=== PATIENT | male | born 1995 | race Caucasian/White ===

== ENCOUNTER → 2019-02-10 09:09 | Outpatient (CLI) | payer OTHER, SELFPAY | PROVIDERS: PCP Emergency Medicine; Visit Provider Nurse Practitioner Family | DX: R55 Syncope and collapse (principal) | CPT/HCPCS: 93017 ==

== ENCOUNTER 2021-05-17 08:52 | Emergency (ER) | payer OTHER, SELFPAY ==
[2021-05-17 08:54] VITALS: BP 129/77; PULSE 76; RESP 18; TEMP 36.8; O2SAT 99
--- NOTE | 2021-05-17 09:01 | CT_ITS ---
PROCEDURE: CT ABDOMEN PELVIS W CON CLINICAL INDICATION: RLQ and Right flank pain COMPARISON: No exams were available for comparison TECHNIQUE: IV Contrast: 75ML Isovue 370 Oral Contrast None Axial images obtained with sagittal and coronal reformats. All CT scans at the facility use one or more dose reduction, viz: automated exposure control, ma/kV adjustment per patient size (including targeted exams where dose is matched to indication, i.e. head), or iterative reconstruction technique. FINDINGS: LOWER THORAX: No acute finding ABDOMEN & PELVIS: The liver, spleen, adrenal glands, and pancreas has an unremarkable appearance. No renal or ureteral calculi. No hydronephrosis. No evidence of appendicitis. No intestinal obstruction or free. Multiple unopacified bowel loops in the abdomen or pelvis which could obscure or mimic pathology. If symptoms persist, consider repeat exam with IV and oral contrast.. There is a mild amount of feces within the colon in the rectosigmoid region. No acute bony findings. IMPRESSION: No acute finding Dictated by: Shemar Haney MD 05/17/2021 10:28 hSemar Haney MD in [place] 05/17/2021 10:28
--- NOTE | 2021-05-17 09:01 | HMH.EDABDPAI ---
ED Disposition Clinical Impression: Gastroenteritis Disposition: Home, Self-Care Condition on Discharge: Fair Instructions: DI for Acute Abdominal Pain, DI for Viral Gastroenteritis -- Adult Additional Instructions: Stick to a clear liquid diet for the next day or 2. Slowly advance your diet as tolerated. Take [id number] Tylenol and or Motrin for your pain. Take the nausea medicine I prescribed for you as needed for nausea and vomiting. Follow-up with your primary care physician in about 3 days if you do not feel any improvement. Return to the emergency department if you feel worse in any way. Prescriptions: Ondansetron [Ondansetron Odt 8mg Tab] 8 mg PO QID 4 Days #16 tab Transmission Status: Pending to [id number] Referrals: Jose Luis Jimenez DO [Primary Care Provider] - 3 days - Critical Care Critical Care Time: No Attestation: On , the high probability of a clinically significant, sudden or life threatening deterioration of the following system(s) required my full and direct attention, intervention and personal management. The time I documented below is in addition to time spent performing reported procedures but includes the following listed in this critical care notation. Medical Decision Making - Medical Records Medical records reviewed: Yes: I reviewed the patient's medical records. - Daljit Inquiry Pt receiving controlled substance: No Vital Signs: 05/17/21 08:54 Temperature 98.2 F Temperature Source Oral Pulse Rate [Right Radial] 76 Respiratory Rate 18 Blood Pressure [Right Arm] 129/77 Blood Pressure Mean [Right Arm] 94 Blood Pressure Source [Right Arm] Automatic Cuff Blood Pressure Position [Right Arm] Sitting 02 Sat by Pulse Oximetry 99 Oxygen Delivery Method Room Air - Lab Data Lab results reviewed: Yes: I reviewed the patient's lab results. Lab Results 05/17/21 09:15: WBC 4.8, RBC 5.65, Hgb 17.3, Hct 51.7, MCV 91.5, MCH 30.6, MCHC 33.5, RDW 12.6, Plt Count 191, MPV 7.5, Neut % (Auto) 55.1, Lymph % (Auto) 35.7, [place] % (Auto) 4.8, Eos % (Auto) 3.7, Baso % (Auto) 0.7, Neut # (Auto) 2.7, Lymph # (Auto) 1.7, [place] # (Auto) 0.2, Eos # (Auto) 0.2, Baso # (Auto) 0.0 05/17/21 09:15: Sodium 141, Potassium 3.7, Chloride 103, Carbon Dioxide 28, Anion Gap 13.7, BUN 7 L, Creatinine 0.90, Estimated Creat Clear 115, Estimated GFR 105, Est GFR ( Amer) 127, Glucose 99, Calcium 9.6, Total Bilirubin 0.6, AST 29, ALT 13, Alkaline Phosphatase 70, Total Protein 7.5, Albumin 4.8, Globulin 2.7, Albumin/Globulin Ratio 1.8, Lipase 48 05/17/21 09:30: Urine Color Yellow, Urine Appearance Clear, Urine pH 6.0, Ur Specific [place] 1.010, Urine Protein Negative, Urine Glucose (UA) Negative, Urine Ketones Negative, Urine Blood Negative, Urine Nitrate Negative, Urine Bilirubin Negative, Urine Urobilinogen 0.2, Ur Leukocyte Esterase Negative, Urine RBC None, Urine WBC 3-5, Ur Squamous Epith Cells Occasional, Urine Bacteria None Result diagrams: 05/17/21 09:15 05/17/21 09:15 Orders (Tests/Meds): ED MEDICATIONS Discontinued Medications Generic Name Dose Route Start Last Admin Trade Name Ze PRN Reason Stop Dose Admin Iopamidol 75 ml 05/17/21 09:51 05/17/21 09:52 Iopamidol-370 (76%);100ml Bottle IV 05/17/21 09:52 75 ml ONCE ONE Administration Ondansetron HCl 4 mg 05/17/21 09:18 05/17/21 09:37 Ondansetron 4mg/2ml Vial IV 05/17/21 09:19 4 mg ONCE ONE Administration Sodium Chloride 10 ml 05/17/21 09:51 05/17/21 09:52 Sodium Chloride 0.9% 10ml Syr (Rad Only) IV 05/17/21 09:52 10 ml ONCE ONE Administration - CT Data CT Scan: Abdomen, Pelvis Time Received: 10:[address] Reviewed: Yes: I have reviewed the patient's CT results, I have viewed the radiologist's interpretation Preliminary Findings: Normal/NAD Medical Decision Narrative: The patient's work-up in the emergency department did not reveal any life-threatening or dangerous causes for the patient
[2021-05-17 09:36] LABS: Basophils % 0.7 % (0.1-2.0); Eosinophils # 0.2 K/mm3 (0.0-0.4); Eosinophils % 3.7 % (0.1-12.0); Hematocrit 51.7 % (42.0-52.0); Hemoglobin 17.3 g/dL (14.1-18.0); Lymphocytes # 1.7 K/mm3 (0.7-4.5); Lymphocytes % 35.7 % (10-50); Mean Corpuscular HGB Conc 33.5 g/dL (31.8-35.4); Mean Corpuscular Hemoglobin 30.6 pg (27.0-31.2); Mean Corpuscular Volume 91.5 fl (80-94); Mean Platelet Volume 7.5 fl (7.4-10.4); Monocytes # 0.2 K/mm3 (0.1-1.0); Monocytes % 4.8 % (1.7-9.3); Neutrophils # 2.7 K/mm3 (1.8-7.8); Neutrophils % 55.1 % (37.0-80.0); Platelet Count 191 K/mm3 (142-424); Red Blood Count 5.65 M/mm3 (4.60-6.20); Red Cell Distribution Width 12.6 % (11.5-17.5); White Blood Count 4.8 K/mm3 (4.8-10.8)
[2021-05-17 09:41] LABS: Microscopic, Urine URINE MICROSCOPIC (MICROSCOPIC)
[2021-05-17 09:43] LABS: Appearance,Urine CLEAR (Clear); Bilirubin,Urine Negative (Negative); Blood, Urine Negative (Negative); Color,Urine YELLOW (Yellow); Glucose,Urine (UA) Negative (Negative); Ketones,Urine Negative (Negative); Leukocyte Esterase,Urine Negative (Negative); Nitrate,Urine Negative (Negative); Protein,Urine Negative (Negative); Urobilinogen,Urine 0.2 EU/dl (0.2)
[2021-05-17 09:50] LABS: Chloride 103 mmol/L (98-107); Potassium 3.7 mmoL/L (3.5-5.1); Sodium 141 mmol/L (136-145)
[2021-05-17 09:52] LABS: Blood Urea Nitrogen 7 mg/dl (9-20); Creatinine Clearance Estimated 115 mL/min (50-200); Estimated Glomerular Filt Rate 105 ml/min (>60); GFR (African American) 127 ML/MIN (>60)
[2021-05-17 09:53] LABS: Alanine Aminotransferase 13 U/L (12-78); Albumin Level 4.8 g/dl (3.5-5.0); Albumin/Globulin Ratio 1.8 (1.1-1.8); Alkaline Phosphatase 70 U/L (38-126); Anion Gap 13.7 mEq/L (5-15); Aspartate Amino Transferase 29 U/L (17-59); Bilirubin,Total 0.6 mg/dl (0.2-1.3); Calcium 9.6 mg/dl (8.4-10.2); Carbon Dioxide 28 mmol/L (22.0-30.0); Globulin 2.7 g/dL (1.3-3.2); Glucose 99 mg/dl (74-100); Lipase 48 U/L (23-300); Total Protein,Serum 7.5 g/dl (6.3-8.2)
[2021-05-17 10:05] LABS: Squamous Epithelial Cell,Urine Occasional #/hpf (0-5)
[2021-05-17 10:52] VITALS: BP 125/82; PULSE 97; RESP 18; TEMP 36.8; O2SAT 98
== END 2021-05-17 10:53 | disposition home or self-care (01) ==
PROVIDERS: Emergency Provider Emergency Medicine; PCP Internal Medicine Clinical Cardiac Electrophysiology
DX: R10.31 Right lower quadrant pain (principal); R11.10 Vomiting, unspecified
CPT/HCPCS: 74177; 80053; 81001; 83690; 85025; 96374; 99283; J2405; Q9967

== ENCOUNTER 2021-11-04 10:54 | Emergency (ER) | payer OTHER, SELFPAY ==
[2021-11-04 10:55] VITALS: BP 137/85; PULSE 104; RESP 16; TEMP 37; O2SAT 98; BMI 20.3
--- NOTE | 2021-11-04 11:03 | PC.NURSE ---
ER at bedside
--- NOTE | 2021-11-04 11:16 | HMH.EDGENADL ---
ED Disposition Clinical Impression: Cellulitis of right lower leg Disposition: Home, Self-Care Condition on Discharge: Good Instructions: Cellulitis Prescriptions: Sulfamethoxazole/Trimethoprim [Bactrim DS tablet] 1 each PO BID #20 tab Transmission Status: [facility] to [facility] cephALEXin [Cephalexin 500mg Tab] 500 mg PO Q6H #40 tab Transmission Status: P[facility] to [facility] Referrals: Yobani Carrillo MD [Primary Care Provider] - - Critical Care Critical Care Time: No Attestation: On 11/04/21, the high probability of a clinically significant, sudden or life threatening deterioration of the following system(s) required my full and direct attention, intervention and personal management. The time I documented below is in addition to time spent performing reported procedures but includes the following listed in this critical care notation. Medical Decision Making - Medical Records Medical records reviewed: Yes: I reviewed the patient's medical records. - Daljit Inquiry Pt receiving controlled substance: No Vital Signs: 11/04/21 10:55 Temperature 98.6 F Temperature Source Oral Pulse Rate [Radial] 104 H Respiratory Rate 16 Blood Pressure [Right Arm] 137/85 Blood Pressure Mean [Right Arm] 102 Blood Pressure Position [Right Arm] Sitting 02 Sat by Pulse Oximetry 98 Oxygen Delivery Method Room Air Orders (Tests/Meds): ED MEDICATIONS Discontinued Medications Generic Name Dose Route Start Last Admin Trade Name Freq PRN Reason Stop Dose Admin Ceftriaxone Sodium 500 mg 11/04/21 11:08 Ceftriaxone 500mg Vial IM 11/04/21 11:09 ONCE ONE Lidocaine HCl 0 ml 11/04/21 11:08 Lidocaine 1% 5ml Pf Vial IM 11/04/21 11:09 ONCE ONE - Reevaluation(s) Time: 11:20 Reevaluation #1: On reevaluation, patient is feeling better. Tolerated initial antibiotic therapy. Patient is on dual antibiotic therapy. Needs a follow-up with PCP in 72 hours for repeat wound examination. Given strict return precautions. Verbalized understanding. Medical Decision Narrative: Is a 26-year-old male presenting to the emergency department with some swelling in his right leg. Findings are most consistent with cellulitis. The patient did have inoculation where he had a recent tattoo performed. Patient was given additional dose of antibiotics in the emergency department. Patient nontoxic. No evidence of sepsis. General Adult HPI - General Chief complaint: Wound/Laceration Stated complaint: right leg infection, swollen, and red Time Seen by Provider: 11/04/21 11:00 Mode of Arrival: Ambulatory Limitations: No Limitations Description of Symptoms (Recalled from ER Triage Doc. by RN): TO ED PER PVT CAR WITH C/O INFECTION RT LOWER LEG STARTING YESTERDAY. PT STATES RECENT TATTOO 1 WEEK AGO AND YESTERDAY AREA STARTED WITH REDNESS AND DRAINAGE AT SITE. DENIES ANY FEVER, CHILLS, NAUSEA, VOMITING - History of Present Illness HPI narrative: Is a 26-year-old male presented to the emergency department with some redness on his right lower leg. The patient states that he got a tattoo in the area about a week ago. Patient dates that since then he started having a little bit of redness in the area. Over the last 2 days he started having some discharge. Described as purulent in nature. States it is mildly tender. He has not been putting anything else on the lesion. Denies any associate fevers or chills. No headache or change in vision. No focal weakness. No chest pain or shortness of breath. Abdominal pain or vomiting. Diarrhea. - Related Data Previous Rx's Medication Instructions Recorded Amoxicillin/Potassium Clav 1 tab PO Q12H 10 Days #20 tab 03/13/19 [Augmentin 875-125 Tablet] Ibuprofen [Ibuprofen 600mg 600 mg PO Q6HP PRN #30 tab 03/13/19 Tablet] Mupirocin [Bactroban 2% Ointment 1 applicatio TP TID 7 Days #1 tube 03/13/19 22gm tube] Silver
[2021-11-04 11:33] VITALS: BP 126/74; PULSE 78; RESP 16; TEMP 36.6; O2SAT 96
--- NOTE | 2021-11-04 13:16 | PC.NURSE ---
pts prescriptions called into clinic pharmacy per pt request, spoke with Gael-pharmacist
== END 2021-11-04 11:35 | disposition home or self-care (01) ==
PROVIDERS: Emergency Provider Emergency Medicine; PCP Emergency Medicine
DX: L03.115 Cellulitis of right lower limb (principal); F17.210 Nicotine dependence, cigarettes, uncomplicated; L81.8 Other specified disorders of pigmentation
CPT/HCPCS: 96372; 99281; 99282; J0696

== ENCOUNTER 2022-04-11 14:25 | Emergency (ER) | payer OTHER, SELFPAY ==
[2022-04-11 14:50] VITALS: BP 113/73; PULSE 70; RESP 18; TEMP 36.7; O2SAT 98; BMI 18.1
--- NOTE | 2022-04-11 15:12 | HMH.EDUTC ---
[facility] [place] Disposition Clinical Impression: Nausea & vomiting Qualifiers: Vomiting type: unspecified Qualified Code(s): R11.2 - Nausea with vomiting, unspecified Disposition: Home, Self-Care Condition on Discharge: Good Instructions: Nausea and Vomiting-Adult, Ondansetron Additional Instructions: Drink extra fluids with and between meals. If you have difficulty drinking, try very small amounts of water or suck on ice chips. ? Avoid fruit juices, as these do not replace minerals and can actually increase diarrhea. ? Children and adults can use sports drinks to replenish electrolytes. Younger children and infants should use products formulated for children, like oral rehydration solutions. ? Eat food in small amounts and let your stomach recover. ? Get lots of rest. You may feel tired or weak. ? No greasy or fried foods for the next 24-48 hours BRAT diet Bananas Rice Apples and [place] ? Make sure to drink plenty of liquids ? Return if needed ? Straight to ER if any life threatening symptoms ? Zofran as prescribed If you start having any abdominal pain go straight to the ED ? Follow up with family doctor in the next 48-72 hours if no improvement or any worsening of symptoms Prescriptions: Ondansetron [Zofran 4mg ODT] 4 mg PO TIDP PRN #20 tab PRN Reason: Nausea Transmission Status: Pending to [facility] Referrals: Yobani Carrillo MD [Primary Care Provider] - As needed Time of Disposition: 15:43 Medical Decision Making - Daljit Inquiry Pt receiving controlled substance: No Daljit was queried for this patient: No Vital Signs: 04/11/22 14:50 04/11/22 15:38 Temperature 98.0 F 98.0 F Temperature Source Oral Pulse Rate 70 Pulse Rate [Right Brachial] 70 Respiratory Rate 18 18 Blood Pressure 113/73 Blood Pressure [Right Arm] 113/73 Blood Pressure Mean [Right Arm] 86 Blood Pressure Source [Right Arm] Automatic Cuff Blood Pressure Position [Right Arm] Sitting 02 Sat by Pulse Oximetry 98 Oxygen Delivery Method Room Air Orders (Tests/Meds): ED MEDICATIONS Discontinued Medications Generic Name Dose Route Start Last Admin Trade Name Freq PRN Reason Stop Dose Admin Ondansetron HCl 4 mg 04/11/22 15:13 04/11/22 15:17 Ondansetron 4mg Odt SL 04/11/22 15:14 4 mg ONCE ONE Administration Medical Decision Narrative: Patient states that he is feeling much better after zofran and sitting up in room drinking water no vomiting since arrival Discussed again with patient to see if he was having pain for transfer to the ED and patient still denies pain [facility] [place] HPI - General Stated complaint: Vomiting Time Seen by Provider: 04/11/22 14:55 Mode of Arrival: Ambulatory Source of Information: Patient Limitations: No Limitations Description of Symptoms (Recalled from Triage Doc. by RN): PATIENT C/O VOMITING, DECREASED ENERGY, AND PAIN IN LEFT LOWER ABDOMEN SINCE YESTERDAY HEENT Symptoms (Recalled from RN notes): No Resp Symptoms (Recalled from RN notes): No Skin Symptoms (Recalled from RN notes): No MS Symptoms (Recalled from RN notes): No Functional Status (Recalled from RN notes): WNL - History of Present Illness Provider Complaint: Patient states that he started yesterday with crampy like feeling in his left lower abdomen and started having N/V States that he has continued to have N/V since State that he has vomited several times today and still having nausea so he came in - Related Data Previous Rx's Medication Instructions Recorded Amoxicillin/Potassium Clav 1 tab PO Q12H 10 Days #20 tab 03/13/19 [Augmentin 875-125 Tablet] Ibuprofen [Ibuprofen 600mg 600 mg PO Q6HP PRN #30 tab 03/13/19 Tablet] Mupirocin [Bactroban 2% Ointment 1 applicatio TP TID 7 Days #1 tube 03/13/19 22gm tube] Silver Sulfadiazine [Silvadene 1 applicatio TP BID 10 Days #50 g 03/13/19 Cream 50gm] pyrethrins 0.33 %-piperonyl 1 applic TOPICAL ONCE #237 ml 08/11/19 butoxide 4 % shampoo Ondansetron
[2022-04-11 15:38] VITALS: BP 113/73; PULSE 70; RESP 18; TEMP 36.7; O2SAT 98
== END 2022-04-11 15:47 | disposition home or self-care (01) ==
PROVIDERS: Emergency Provider Nurse Practitioner; PCP Emergency Medicine
DX: R11.2 Nausea with vomiting, unspecified (principal)
CPT/HCPCS: 99212; G0463

== ENCOUNTER 2022-04-25 15:43 | Emergency (ER) | payer OTHER, SELFPAY ==
[2022-04-25 17:10] VITALS: BP 120/73; PULSE 62; RESP 20; TEMP 37.2; O2SAT 99; BMI 19.1
[2022-04-25 17:13] LABS: UTC Influenza A Antigen Negative (Negative)
[2022-04-25 17:14] LABS: UTC Influenza B Antigen Negative (Negative)
--- NOTE | 2022-04-25 17:33 | HMH.EDUTC ---
[facility] [place]ression: Nausea vomiting and diarrhea Disposition: Home, Self-Care Condition on Discharge: Good Instructions: Nausea and Vomiting-Adult, Diarrhea Additional Instructions: Drink extra fluids with and between meals. If you have difficulty drinking, try very small amounts of water or suck on ice chips. ? Avoid fruit juices, as these do not replace minerals and can actually increase diarrhea. ? Children and adults can use sports drinks to replenish electrolytes. Younger children and infants should use products formulated for children, like oral rehydration solutions. ? Eat food in small amounts and let your stomach recover. ? Get lots of rest. You may feel tired or weak. ? No greasy or fried foods for the next 24-48 hours BRAT diet Bananas Rice Apples and [place] ? Make sure to drink plenty of liquids ? Return if needed ? Straight to ER if any life threatening symptoms ? Zofran as prescribed ? You was given an outpatient order for diarrhea panel, please collect specimen and bring back to outpatient lab then call back to the [facility] or follow up with family doctor for results ? Follow up with family doctor in the next 48-72 hours if no improvement or any worsening of symptoms You were tested for today for COVID19 your test result should be back in the next 24-48 hours, you may check your results on the [facility] My Health Portal Make sure to take your Vitamins Vit. C Vit D and Zinc if you can take them Referrals: Yobani Carrillo MD [Primary Care Provider] - As needed Forms: Work/School Release Medical Decision Making - Daljit Inquiry Pt receiving controlled substance: No Daljit was queried for this patient: No Vital Signs: 04/25/22 17:10 Temperature 99.0 F Temperature Source Oral Pulse Rate [Left Brachial] 62 Respiratory Rate 20 Blood Pressure [Left Arm] 120/73 Blood Pressure Mean [Left Arm] 88 Blood Pressure Source [Left Arm] Automatic Cuff Blood Pressure Position [Left Arm] Sitting 02 Sat by Pulse Oximetry 99 Oxygen Delivery Method Room Air - Lab Data Lab results reviewed: Yes: I reviewed the patient's lab results. Lab Results 04/25/22 17:04: Influenza Type A Ag Negative, Influenza Type B Ag Negative Medical Decision Narrative: Patient state that he has zofran at [place] [facility] [place] - General Stated complaint: vomitting, Diarrhea Time Seen by Provider: 04/25/22 17:33 Mode of Arrival: Ambulatory Source of Information: Patient Limitations: No Limitations Description of Symptoms (Recalled from Triage Doc. by RN): PATIENT C/O VOMITING, DIARRHEA, AND DECREASED ENERGY SINCE SUNDAY HEENT Symptoms (Recalled from RN notes): No Resp Symptoms (Recalled from RN notes): No Skin Symptoms (Recalled from RN notes): No MS Symptoms (Recalled from RN notes): No Functional Status (Recalled from RN notes): WNL - History of Present Illness Provider Complaint: Patient states that he has had decreased energy and diarrhea and vomiting on and off since Sunday States that he has been drinking lots of fluids to keep his self hydrated but today he was feeling achy so he came in - Related Data Allergies Allergy/AdvReac Type Severity Reaction Status Date / Time No Known Allergies Allergy Verified 03/02/19 02:14 - Worker's Comp Is this a Worker's Comp case?: No [facility] History - Hepatitis A Screen Attestation statement:: This patient has been screened for Hepatitis A risk factors. I have reviewed the patient's past medical history: Yes Medical History: Denies:: Cancer, Diabetes Mellitus Type 1, Diabetes Mellitus Type 2, MRSA, Seizures, Transient Ischemic Attacks (TIA) Other Medical History: Reports: Other Laterality Cases: Bilateral: Tonsillectomy Other Surgeries: Yes: Other Amputation: No Fractures: Yes - Social History Smoking Status: Current every day smoker Tobacco Type: cigarettes # Packs/Day (cigarettes): 1 #Yrs smoked (if former smoker): 6 Alcohol Intake: never Alcohol Intake Frequ
[2022-04-25 17:52] VITALS: BP 120/73; PULSE 62; RESP 20; TEMP 37.2; O2SAT 99
== END 2022-04-25 18:04 | disposition home or self-care (01) ==
PROVIDERS: Emergency Provider Nurse Practitioner; PCP Emergency Medicine
DX: R11.2 Nausea with vomiting, unspecified (principal); R19.7 Diarrhea, unspecified
CPT/HCPCS: 87804; 99212; G0463

== ENCOUNTER 2022-11-15 11:12 | Emergency (ER) | payer OTHER, SELFPAY ==
[2022-11-15 11:20] VITALS: BP 131/73; PULSE 68; RESP 16; TEMP 36.4; O2SAT 100; BMI 20.3
--- NOTE | 2022-11-15 11:29 | HMH.EDABDPAI ---
Discharge Plan Disposition Patient Disposition: Home, Self-Care Condition: Good Prescriptions Prescriptions: New ondansetron 4 mg tablet,disintegrating 4 mg PO Q8H PRN (Reason: nausea and vomiting) 4 Days Qty: 10 0RF Referrals Follow up/Referrals: Yobani Carrillo MD [Primary Care Provider] - See instructions Activity Restrictions/Add. Instructions Additional Instructions/Restrictions: Drink plenty of fluids to include an oral rehydration solution such as Pedialyte. Avoid fried greasy spicy foods. Advance diet to bland foods as tolerated. Return for worsening abdominal pain or other concerns. Clinical Impressions Clinical Impression: Gastroenteritis Stand Alone Forms Stand Alone Forms: Work/School Release Instructions Patient Instructions: DI for Acute Abdominal Pain Discharge ED Provider: Atul Handy Abdominal Pain HPI General Chief Complaint: Abdominal Pain Stated Complaint: stomach pain, diarrhea, vomiting Time Seen by Provider: 11/15/22 11:19 Mode of Arrival: Ambulatory Source of Information: Patient Limitations: No Limitations Description of Symptoms (Recalled from ER Triage Doc. by RN): Pt c/o N/V/D sick for about four days and the pain started this morning indicating generalized abdominal pain, denies sick contacts, no previus abd sx; NAD History of Present Illness HPI narrative: Patient presents with a 4-day history of nausea vomiting diarrhea and abdominal discomfort. He describes symptoms as moderate. He states he had a valdez eater this morning from [employer] and vomited that back up and has not tolerated fluids today and has had 2 episodes of vomiting today. Denies recent antibiotic use he denies fever. He denies exacerbating alleviating factors. Related Data Previous Rx's Medication Instructions Recorded ondansetron 4 mg disintegrating 4 mg PO Q8H PRN nausea and 11/15/22 tablet vomiting 4 days #10 tabs Allergies Allergy/AdvReac Type Severity Reaction Status Date / Time No Known Allergies Allergy Verified 03/02/19 02:14 [facility] Disclaimer: The information contained in this section may have been updated after the patient was seen, as this information can be updated by other users. Social History Smoking Status: Current every day smoker tobacco type: cigarettes packs per day: 1 second hand exposure: Yes alcohol intake: never substance use type: marijuana current occupational status: other Travel in the last 8 weeks: None household members: family housing: house ROS Obtained: Yes All systems reviewed & no additional complaints except as documented Physical Exam General General appearance: alert and in no apparent distress Head Head exam: atraumatic, normocephalic and normal inspection Eye Eye exam: Present normal appearance, PERRL and EOMI ENT ENT exam: Present normal exam, normal oropharynx, mucous membranes moist, TM's normal bilaterally and normal external ear exam Neck Neck exam: Present normal inspection, full ROM and trachea midline; Absent meningismus or lymphadenopathy Chest Chest inspection: Present normal inspection and symmetric chest wall rise; Absent tenderness Respiratory Respiratory exam: Present normal lung sounds bilaterally; Absent respiratory distress Cardiovascular Cardiovascular exam: Present regular rate and normal rhythm; Absent JVD Abdominal Exam Abdominal tenderness: Present suprapubic (mild) Extremities Exam Extremities exam: Present normal inspection, full ROM and normal capillary refill; Absent calf tenderness Back Exam Back exam: Present normal inspection; Absent tenderness Neurological Exam Neurological exam: Present alert and oriented X3 Psychiatric Psychiatric exam: Present normal affect and normal mood Skin Skin exam: Present warm, dry, intact and normal color Lymphatic Lymphatic Findings: no adenopathy Medical Decision Making Daljit Inquiry Pt receiving co
[2022-11-15 11:30] VITALS: BP 111/69; PULSE 71; O2SAT 99
[2022-11-15 11:30] LABS: Microscopic, Urine URINE MICROSCOPIC (MICROSCOPIC)
[2022-11-15 11:32] LABS: Appearance,Urine CLEAR (Clear); Bilirubin,Urine Negative (Negative); Blood, Urine Negative (Negative); Color,Urine YELLOW (Yellow); Glucose,Urine (UA) Negative (Negative); Ketones,Urine Negative (Negative); Leukocyte Esterase,Urine Negative (Negative); Nitrate,Urine Negative (Negative); Protein,Urine Negative (Negative); Specific Gravity, Urine <= 1.005 (1.005-1.030); Urobilinogen,Urine 0.2 EU/dl (0.2)
[2022-11-15 11:44] LABS: Bacteria,Urine Trace /lpf; Squamous Epithelial Cell,Urine Occasional #/hpf (0-5)
[2022-11-15 11:45] LABS: Basophils % 0.7 % (0.1-2.0); Eosinophils # 0.1 K/mm3 (0.0-0.4); Eosinophils % 1.5 % (0.1-12.0); Hematocrit 46.9 % (42.0-52.0); Hemoglobin 16.1 g/dL (14.1-18.0); Lymphocytes # 2.2 K/mm3 (0.7-4.5); Lymphocytes % 36.3 % (10-50); Mean Corpuscular HGB Conc 34.2 g/dL (31.8-35.4); Mean Corpuscular Hemoglobin 30.5 pg (27.0-31.2); Mean Corpuscular Volume 89.1 fl (80-94); Mean Platelet Volume 7.8 fl (7.4-10.4); Monocytes # 0.3 K/mm3 (0.1-1.0); Monocytes % 4.3 % (1.7-9.3); Neutrophils # 3.5 K/mm3 (1.8-7.8); Neutrophils % 57.2 % (37.0-80.0); Platelet Count 183 K/mm3 (142-424); Red Blood Count 5.27 M/mm3 (4.60-6.20); White Blood Count 6.2 K/mm3 (4.8-10.8)
[2022-11-15 11:55] LABS: Chloride 102 mmol/L (98-107); Potassium 3.6 mmoL/L (3.5-5.1); Sodium 138 mmol/L (136-145)
[2022-11-15 11:57] LABS: Blood Urea Nitrogen 12 mg/dl (9-20); Creatinine Clearance Estimated 121 mL/min (50-200); Estimated Glomerular Filt Rate 103 ml/min (>60); GFR (African American) 124 ML/MIN (>60)
[2022-11-15 11:58] LABS: Alanine Aminotransferase 18 U/L (12-78); Albumin/Globulin Ratio 2.2 (1.1-1.8); Alkaline Phosphatase 61 U/L (38-126); Anion Gap 12.6 mEq/L (5-15); Aspartate Amino Transferase 31 U/L (17-59); Bilirubin,Total 0.4 mg/dl (0.2-1.3); Carbon Dioxide 27 mmol/L (22.0-30.0); Globulin 2.3 g/dL (1.3-3.2); Glucose 97 mg/dl (74-100); Lipase 85 U/L (23-300); Total Protein,Serum 7.3 g/dl (6.3-8.2)
--- NOTE | 2022-11-15 12:24 | PC.NURSE ---
rounded on pts room to see if they had any needs. pt stated that they had no needs at this time
--- NOTE | 2022-11-15 12:35 | PC.NURSE ---
pt ambulated to restroom independently at this time.
[2022-11-15 13:44] VITALS: BP 107/63; PULSE 74; RESP 16; TEMP 36.6
== END 2022-11-15 13:46 | disposition home or self-care (01) ==
PROVIDERS: Emergency Provider Emergency Medicine; PCP Emergency Medicine
DX: K52.9 Noninfective gastroenteritis and colitis, unspecified (principal); F17.210 Nicotine dependence, cigarettes, uncomplicated
CPT/HCPCS: 80053; 81001; 83690; 85025; 96361; 96372; 96374; 99284; 99285; J2405

== ENCOUNTER 2023-02-09 12:22 | Emergency (ER) | payer OTHER, SELFPAY ==
[2023-02-09 12:23] VITALS: BP 153/84; PULSE 102; RESP 16; TEMP 36.8; O2SAT 100; BMI 20.3
--- NOTE | 2023-02-09 12:40 | HMH.EDGENADL ---
Discharge Plan Disposition Patient Disposition: Home, Self-Care Prescriptions Prescriptions: New amoxicillin-pot clavulanate 875-125 mg tablet 1 tab PO BID 7 Days Qty: 14 0RF No Action ondansetron 4 mg tablet,disintegrating 4 mg PO Q8H PRN (Reason: nausea and vomiting) 4 Days Qty: 10 0RF Referrals Follow up/Referrals: Yobani Carrillo MD [Primary Care Provider] - See instructions Activity Restrictions/Add. Instructions Additional Instructions/Restrictions: Please follow-up with your dentist as instructed on Sunday. Clinical Impressions Clinical Impression: Fracture, tooth, Acute pulpitis Discharge ED Provider: Emy Butler General Adult HPI General Chief complaint: Dental/Oral Stated complaint: jaw/tooth pain Time Seen by Provider: 02/09/23 12:40 Mode of Arrival: Ambulatory Source of Information: Patient Limitations: No Limitations Description of Symptoms (Recalled from ER Triage Doc. by RN): Presents to ED with complaints of right upper frontal dental pain that began Sunday night. Upcoming dental appt scheduled Sunday. Tx OTC orajel & Tylenole with worsening pain. History of Present Illness HPI narrative: 27-year-old male presenting with nontraumatic tooth pain. States he has a dental fracture that was secondary to dental caries and has subsequently had some pain and swelling in the gingiva just superior to this tooth. No fevers or chills no facial swelling. He has an appointment that he made with his dentist on Sunday but pain has been severe. Related Data Previous Rx's Medication Instructions Recorded ondansetron 4 mg disintegrating 4 mg PO Q8H PRN nausea and 11/15/22 tablet vomiting 4 days #10 tabs amoxicillin 875 mg-potassium 1 tab PO BID 7 days #14 tabs 02/09/23 clavulanate 125 mg tablet Allergies Allergy/AdvReac Type Severity Reaction Status Date / Time No Known Allergies Allergy Verified 03/02/19 02:14 [facility] Disclaimer: The information contained in this section may have been updated after the patient was seen, as this information can be updated by other users. Social History Smoking Status: Current every day smoker tobacco type: cigarettes packs per day: 1 second hand exposure: Yes alcohol intake: never substance use type: marijuana current occupational status: other Travel in the last 8 weeks: None household members: family housing: house ROS Obtained: Yes All systems reviewed & no additional complaints except as documented Physical Exam General General appearance: alert ENT ENT exam: Present other (Right maxillary dental molar half of it is fractured with exposed nerve root there is a mild amount of superficial and overlying gingival tenderness and swelling the remainder of his teeth appear unremarkable) Respiratory Respiratory exam: Absent respiratory distress Cardiovascular Cardiovascular exam: Present regular rate; Absent tachycardia Neurological Exam Neurological exam: Present alert and oriented X3 Medical Decision Making Daljit Inquiry Pt receiving controlled substance: No Vital Signs: 02/09/23 12:23 Temperature 98.2 F Temperature Source Oral Pulse Rate [Right] 102 H Respiratory Rate 16 Blood Pressure [Right Arm] 153/84 H Blood Pressure Mean [Right Arm] 107 02 Sat by Pulse Oximetry 100 Oxygen Delivery Method Room Air Medical Decision Narrative: 27-year-old with dental fracture and superimposed pulpitis and mild gingivitis possible periapical abscess will initiate Augmentin and have him follow-up with his dentist I did a localized nerve block with complete pain resolution has been advised to take Tylenol and ibuprofen. He was discharged in stable condition. Procedures Nerve Block Nerve Block 1: Time out performed: Yes Local Anesthetic: lidocaine 1% and bupivacaine 0.5% Amount of anesthesia used (mL): 3 Side: Right Nerve Blocks: other
[2023-02-09 13:00] VITALS: BP 133/76; PULSE 79; O2SAT 98
[2023-02-09 13:17] VITALS: BP 133/76; PULSE 76; RESP 16; TEMP 36.7; O2SAT 98
== END 2023-02-09 13:20 | disposition home or self-care (01) ==
PROVIDERS: Emergency Provider Student in an Organized Health Care Education/Training Program; PCP Emergency Medicine
DX: K03.81 Cracked tooth (principal); R22.0 Localized swelling, mass and lump, head; F17.210 Nicotine dependence, cigarettes, uncomplicated
CPT/HCPCS: 64400; 99283; 99284

== ENCOUNTER 2023-07-26 15:30 | Emergency (ER) | payer OTHER, SELFPAY ==
[2023-07-26 16:15] VITALS: BP 131/67; PULSE 67; RESP 20; TEMP 36.7; O2SAT 98; BMI 19.0
--- NOTE | 2023-07-26 16:53 | EXP.UTC ---
Discharge Plan Disposition Patient Disposition: Home, Self-Care Condition: Good Prescriptions Prescriptions: New ondansetron 4 mg tablet,disintegrating 4 mg PO Q8H PRN (Reason: nausea and vomiting) Qty: 10 0RF Referrals Follow up/Referrals: Yobani Carrillo MD [Primary Care Provider] - See instructions Activity Restrictions/Add. Instructions Additional Instructions/Restrictions: Drink extra fluids with and between meals. If you have difficulty drinking, try very small amounts of water or suck on ice chips. ? Avoid fruit juices, as these do not replace minerals and can actually increase diarrhea. ? Children and adults can use sports drinks to replenish electrolytes. Younger children and infants should use products formulated for children, like oral rehydration solutions. ? Eat food in small amounts and let your stomach recover. ? Get lots of rest. You may feel tired or weak. ? No greasy or fried foods for the next 24-48 hours BRAT diet Bananas Rice Apples and [place] ? Make sure to drink plenty of liquids ? Return if needed ? Straight to ER if any life threatening symptoms ? Zofran as prescribed ? You was given an outpatient order for diarrhea panel, please collect specimen and bring back to outpatient lab then call back to the [facility] or follow up with family doctor for results ? Follow up with family doctor in the next 48-72 hours if no improvement or any worsening of symptoms Clinical Impressions Clinical Impression: Diarrhea Qualifiers: Diarrhea type: unspecified type Qualified Code(s): R19.7 - Diarrhea, unspecified Stand Alone Forms Stand Alone Forms: Work/School Release Instructions Patient Instructions: Diarrhea, DI for Nausea -- Adult Discharge ED Provider: Amy Dale [facility] [place] General Stated complaint: diarrhea Mode of Arrival: Ambulatory Source of Information: Patient Limitations: No Limitations Time Seen by Provider: 07/26/23 16:53 Description of Symptoms (Recalled from Triage Doc. by RN): PATIENT C/O NAUSEA AND DIARRHEA SINCE SUNDAY HEENT Symptoms (Recalled from RN notes): No Resp Symptoms (Recalled from RN notes): No Skin Symptoms (Recalled from RN notes): No MS Symptoms (Recalled from RN notes): No Functional Status (Recalled from RN notes): WNL History of Present Illness Provider Complaint: Patient states that he started on Sunday with nausea and diarrhea States that he hasnt had any vomiting or anything but still had some diarrhea this morning and today so he came in denies any other symptoms Related Data Previous Rx's Medication Instructions Recorded ondansetron 4 mg disintegrating 4 mg PO Q8H PRN nausea and 07/26/23 tablet vomiting #10 tabs Allergies Allergy/AdvReac Type Severity Reaction Status Date / Time No Known Allergies Allergy Verified 03/02/19 02:14 Worker's Comp Is this a Worker's Comp case?: No PFSH [facility] Disclaimer: The information contained in this section may have been updated after the patient was seen, as this information can be updated by other users. Social History Smoking Status: Current every day smoker tobacco type: cigarettes packs per day: 1 second hand exposure: Yes alcohol intake: never substance use type: marijuana current occupational status: other Travel in the last 8 weeks: None household members: family housing: house ROS Obtained: Yes All systems reviewed & no additional complaints except as documented and Yes Systems reviewed as appropriate & no additional complaints except as documented Constitutional Constitutional: Reports system reviewed and no additional complaints, except as documented, Reports as per HPI, Denies body ache, Denies chills and Denies fever(s) ENT Ears, Nose, Mouth, and Throat: Reports system reviewed and no additional complaints, except as document
[2023-07-26 17:07] VITALS: BP 131/67; PULSE 67; RESP 20; TEMP 36.7; O2SAT 98
== END 2023-07-26 17:14 | disposition home or self-care (01) ==
PROVIDERS: Emergency Provider Nurse Practitioner; PCP Emergency Medicine
DX: R19.7 Diarrhea, unspecified (principal); R11.0 Nausea; F17.210 Nicotine dependence, cigarettes, uncomplicated
CPT/HCPCS: 99212; 99214; G0463

== ENCOUNTER 2023-12-14 16:57 | Emergency (ER) | payer OTHER, SELFPAY ==
[2023-12-14 16:59] VITALS: BP 138/82; PULSE 77; RESP 16; TEMP 36.8; O2SAT 99; BMI 19.6
--- NOTE | 2023-12-14 17:28 | ED_ITS ---
Discharge Plan Disposition Patient Disposition: Home, Self-Care Prescriptions Prescriptions: New dexamethasone 6 mg tablet 6 mg PO DAILY Qty: 5 0RF No Action ondansetron 4 mg tablet,disintegrating 4 mg PO Q8H PRN (Reason: nausea and vomiting) Qty: 10 0RF Referrals Follow up/Referrals: Shahbaz Landin, PT [Physical Therapist] - See instructions Marvin Allen DO [Primary Care Provider] - See instructions Piero Dan DO [Staff Physician] - See instructions Activity Restrictions/Add. Instructions Additional Instructions/Restrictions: Call your family doctor to establish care for this visit to the emergency department and schedule follow-up within 48 hours to ensure improvement. If you have any worsening of your condition or any other concerning signs or symptoms, return to the emergency department or your primary care doctor for further evaluation. Clinical Impressions Clinical Impression: Right sided sciatica Discharge ED Provider: Atul Caballero General Adult HPI General Stated complaint: lower back , RT hip pain Time Seen by Provider: 12/14/23 17:22 History of Present Illness HPI narrative: 28-year-old male no relevant medical history presenting with right buttock pain. He states he bent over yesterday, 4/ to picker feeder a ladder. Had pain shoot down the right side of his buttock from his lower back. No bowel or bladder dysfunction, weakness in his lower extremities, saddle anesthesia, or any other red flag signs. Has not noticed anything that makes it any better or worse. Still able to ambulate and void spontaneously. Please note that above description of symptoms, in this electronic medical record under categorization of recalled from ER triage doctor by RN are reflective of an initial nursing assessment, however, is not reflective of my full history and physical exam that was personally taken and clarified. Consequentially, this preceding description of symptoms, which may include the patient's categorized chief complaint in the EMR, do not reflect my personal clinical impression, and the ultimate description of history of present illness and patient stated complaints should be deferred to this section of the note. Unless stated otherwise or congruent with this section of the note, additional signs, symptoms, or incongruence should be interpreted as inaccurate with my clinical impression. Related Data Previous Rx's Medication Instructions Recorded ondansetron 4 mg disintegrating 4 mg PO Q8H PRN nausea and 07/26/23 tablet vomiting #10 tabs dexamethasone 6 mg tablet 6 mg PO DAILY #5 tabs 12/14/23 Allergies Allergy/AdvReac Type Severity Reaction Status Date / Time No Known Allergies Allergy Verified 03/02/19 02:14 [facility] Disclaimer: The information contained in this section may have been updated after the patient was seen, as this information can be updated by other users. Social History Smoking Status: Current every day smoker tobacco type: cigarettes packs per day: 1 second hand exposure: Yes alcohol intake: never substance use type: marijuana current occupational status: other Travel in the last 8 weeks: None household members: family housing: house ROS Obtained: Yes All systems reviewed & no additional complaints except as documented Physical Exam General General appearance: alert and in no apparent distress Head Head exam: atraumatic and normocephalic Eye Eye exam: Present normal appearance, PERRL and EOMI ENT ENT exam: Present mucous membranes moist Neck Neck exam: Present normal inspection, full ROM and trachea midline Respiratory Respiratory exam: Absent respiratory distress, wheezes, stridor, accessory muscle use or prolonged expiratory phase Cardiovascular Cardiovascular exam: Present normal rhythm Abdominal Exam Abdominal exam: Present soft; Absent distention, tenderness, guarding, rebound or rigidity Extremities Exam Extremities exam: Absent edema Back Exam Back exam: Absent tenderness Neurological Exam Neurological exam: Present alert, oriented X3, CN II-XII intact and normal gait; Absent motor sensory deficit Skin Skin exam: Present warm and dry; Absent diaphoresis or erythema Medical Decision Making Medical Records Medical records reviewed: Yes I reviewed the patient's medical records. Daljit Inquiry Pt receiving controlled substance: No Daljit was queried for this patient: No Medical Decision Narrative: 28-year-old male no relevant medical history presenting with right buttock pain. He states he bent over yesterday, 4/4 to picker feeder a ladder. Had pain shoot down the right side of his buttock from his lower back. No bowel or bladder dysfunction, weakness in his lower extremities, saddle anesthesia, or any other red flag signs. Has not noticed anything that makes it any better or worse. Still able to ambulate and void spontaneously. History obtained the patient. On arrival, patient hemodynamically stable, ambulating without issue. No spinal tenderness. Patient does have tenderness overlying right gluteus minimus/medius. Neurovascular intact lower extremities. Overall well- appearing. Differential includes disc herniation, sciatic nerve pain, other radiculopathy, muscle strain, among others. Patient given 10 mg Decadron p.o. Imaging considered, but CT spine not deemed necessary at this time given no red flag signs. Because patient at baseline without signs or symptoms of clinical decompensation, deemed appropriate for discharge. Results were relayed to patient who voiced understanding and were agreeable to outpatient management and follow up. I discussed my clinical impression with patient and answered all questions. At this time, the evidence for any other entities in the differential is insufficient to warrant any further testing or ED observation. This was explained as well. Advisory was given that persistent or worsening symptoms require further evaluation. I confirmed the understanding of this discussion. Critical Care Critical Care Time Critical Care Time: No
[2023-12-14] MEDS: DEXAMETHASONE 4MG TABLET 10 MG PO (17:36)
[2023-12-14 17:39] VITALS: BP 115/78; PULSE 66; RESP 16; TEMP 36.7; O2SAT 97
== END 2023-12-14 17:40 | disposition home or self-care (01) ==
PROVIDERS: Emergency Provider Emergency Medicine; PCP Internal Medicine
DX: M54.31 Sciatica, right side (principal); F17.210 Nicotine dependence, cigarettes, uncomplicated; X50.0XXA Overexertion from strenuous movement or load, initial encounter
CPT/HCPCS: 99283

== ENCOUNTER 2024-07-15 07:20 | Emergency (ER) | payer OTHER, SELFPAY ==
[2024-07-15 07:21] VITALS: BP 126/88; PULSE 83; RESP 16; TEMP 36.6; O2SAT 100; BMI 20.3
--- NOTE | 2024-07-15 07:23 | PC.NURSE ---
pt ambulatory to restroom without complications
[2024-07-15 07:27] VITALS: BP 126/88; PULSE 79; O2SAT 100
[2024-07-15 07:30] VITALS: BP 122/80; PULSE 66; O2SAT 100
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
[2024-07-15 08:10] VITALS: BP 122/80; PULSE 66; RESP 18; TEMP 36.6; O2SAT 100
== END 2024-07-15 08:11 | disposition home or self-care (01) ==
PROVIDERS: Emergency Provider Emergency Medicine; PCP Internal Medicine
DX: S70.02XA Contusion of left hip, initial encounter (principal); M25.552 Pain in left hip; W31.89XA Contact with other specified machinery, initial encounter; Y93.89 Activity, other specified; Y92.9 Unspecified place or not applicable
CPT/HCPCS: 73502; 99283

== ENCOUNTER 2024-08-05 12:24 | Emergency (ER) | payer OTHER, SELFPAY ==
[2024-08-05 12:34] VITALS: BP 147/89; PULSE 85; RESP 18; TEMP 36.6; O2SAT 99; BMI 20.5
--- NOTE | 2024-08-05 12:43 | EXP.UTC ---
Discharge Plan Disposition Patient Disposition: Home, Self-Care Condition: Good Prescriptions Prescriptions: New ondansetron 4 mg tablet,disintegrating 4 mg PO Q8H PRN (Reason: nausea and vomiting) Qty: 10 0RF Referrals Follow up/Referrals: Provider,Referral, MD [Primary Care Provider] - See instructions Activity Restrictions/Add. Instructions Additional Instructions/Restrictions: Drink extra fluids with and between meals. If you have difficulty drinking, try very small amounts of water or suck on ice chips. ? Avoid fruit juices, as these do not replace minerals and can actually increase diarrhea. ? Children and adults can use sports drinks to replenish electrolytes. Younger children and infants should use products formulated for children, like oral rehydration solutions. ? Eat food in small amounts and let your stomach recover. ? Get lots of rest. You may feel tired or weak. ? No greasy or fried foods for the next 24-48 hours BRAT diet Bananas Rice Apples and [place] ? Make sure to drink plenty of liquids ? Return if needed ? Straight to ER if any life threatening symptoms ? Zofran as prescribed ? You was given an outpatient order for diarrhea panel, please collect specimen and bring back to outpatient lab then call back to the [facility] or follow up with family doctor for results ? Follow up with family doctor in the next 48-72 hours if no improvement or any worsening of symptoms Clinical Impressions Clinical Impression: Nausea vomiting and diarrhea Stand Alone Forms Stand Alone Forms: Work/School Release Instructions Patient Instructions: DI for Nausea -- Adult, Nausea and Vomiting-Adult Print Language Print Language: Upper Sorbian Discharge ED Provider: Amy Dale [facility] [place] HPI General Stated complaint: stomach issues Mode of Arrival: Ambulatory Source of Information: Patient Time Seen by Provider: 08/05/24 12:43 Description of Symptoms (Recalled from Triage Doc. by RN): N/V/D HEENT Symptoms (Recalled from RN notes): No Resp Symptoms (Recalled from RN notes): No Skin Symptoms (Recalled from RN notes): No MS Symptoms (Recalled from RN notes): No Functional Status (Recalled from RN notes): WNL History of Present Illness Provider Complaint: Patient states over the weekend he started with N/V/D Denies fever or any other symptoms States that he is no longer vomiting but still had some nausea and diarrhea this morning and wasnt able to go to work needs a work note Related Data Previous Rx's ?Medication ?Instructions ?Recorded ondansetron 4 mg disintegrating 4 mg PO Q8H PRN nausea and 08/05/24 tablet vomiting #10 tabs Allergies Allergy/AdvReac Type Severity Reaction Status Date / Time No Known Allergies Allergy Verified 03/02/19 02:14 Worker's Comp Is this a Worker's Comp case?: No [facility] Disclaimer: The information contained in this section may have been updated after the patient was seen, as this information can be updated by other users. Medical History (Updated 08/05/24 @ 12:50 by Amy Dale APRN) Migraine Surgical History (Updated 08/05/24 @ 12:37 by Conchita Beasley RN) History of tonsillectomy and adenoidectomy Social History Smoking Status: Current every day smoker tobacco type: cigarettes packs per day: 1 second hand exposure: Yes alcohol intake: never substance use type: marijuana current occupational status: other household members: family housing: house ROS Obtained: Yes All systems reviewed & no additional complaints except as documented and Yes Systems reviewed as appropriate & no additional complaints except as documented Constitutional Constitutional: Reports system reviewed and no additional complaints, except as documented, Reports as per HPI, Denies body ache, Denies chills, Denies fever(s) and Denies headache(s) ENT Ears, Nose, Mouth, and Throat: Reports system reviewed and no additional complaints, except as documented, Reports as per HPI and Denies headache(s) Cardiovascular Cardiovascular: Reports system reviewed and no additional complaints, except as documented and Reports as per HPI Respiratory Respiratory: Reports system reviewed and no additional complaints, except as documented and Reports as per HPI Gastrointestinal Gastrointestingal: Reports system reviewed and no additional complaints, except as documented, as per HPI, diarrhea, nausea and vomiting; Denies abdominal pain Genitourinary Male Genitourinary: Reports system reviewed and no additional complaints, except as documented and Reports as per HPI Neurologic Neurologic: Denies headache(s) Physical Exam General General appearance: alert and in no apparent distress ENT ENT exam: Present normal exam, normal oropharynx, mucous membranes moist and TM's normal bilaterally Chest Chest inspection: Present normal inspection and symmetric chest wall rise Respiratory Respiratory exam: Present normal lung sounds bilaterally; Absent respiratory distress or wheezes Cardiovascular Cardiovascular exam: Present regular rate, normal rhythm and normal heart sounds Abdominal Exam Abdominal exam: Present soft and normal bowel sounds; Absent distention, tenderness or guarding Neurological Exam Neurological exam: Present alert, oriented X3 and normal gait Medical Decision Making Medical Records Screening: Per USPSTF and CDC recommendations, given the prevalence of disease in our region, it is our hospital?s policy to screen for HIV and viral Hepatitis for all patients aged 18 and over and those with ongoing risk factors. Daljit Inquiry Pt receiving controlled substance: No Daljit was queried for this patient: No Vital Signs: 08/05/24 12:34 Temperature 97.9 F Temperature Source Oral Pulse Rate [Left Radial] 85 Respiratory Rate 18 Blood Pressure [Left Arm] 147/89 H Blood Pressure Mean [Left Arm] 108 02 Sat by Pulse Oximetry 99
[2024-08-05 13:03] VITALS: BP 147/89; PULSE 85; RESP 18; TEMP 36.6
== END 2024-08-05 13:05 | disposition home or self-care (01) ==
PROVIDERS: Emergency Provider Nurse Practitioner
DX: R11.2 Nausea with vomiting, unspecified (principal); R19.7 Diarrhea, unspecified
CPT/HCPCS: 99213; G0381

== ENCOUNTER 2024-08-25 16:44 | Emergency (ER) | payer SELFPAY ==
[2024-08-25 16:46] VITALS: BP 106/75; PULSE 88; RESP 16; TEMP 36.9; O2SAT 98; BMI 21.5
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
[2024-08-25] MEDS: ACETAMINOPHEN 500MG TAB 1000 MG PO (18:22)
[2024-08-25] MEDS: IBUPROFEN 400 MG TABLET 800 MG PO (18:22)
[2024-08-25] MEDS: METHOCARBAMOL 500MG TABLET 500 MG PO (18:22)
[2024-08-25] MEDS: LIDOCAINE 5% TRANSDERMAL PATCH 1 EACH TP (18:22)
[2024-08-25 18:54] VITALS: BP 121/72; PULSE 77; O2SAT 97
--- NOTE | 2024-08-25 19:05 | PC.NURSE ---
pt was setting in chair no needs at this time
[2024-08-25 19:17] VITALS: BP 121/72; PULSE 77; RESP 14; TEMP 36.9
== END 2024-08-25 19:18 | disposition home or self-care (01) ==
PROVIDERS: Emergency Provider Emergency Medicine; PCP Internal Medicine
DX: M25.561 Pain in right knee (principal); M25.552 Pain in left hip; M54.50 Low back pain, unspecified; V89.2XXA Person injured in unspecified motor-vehicle accident, traffic, initial encounter; Y93.9 Activity, unspecified; Y92.9 Unspecified place or not applicable
CPT/HCPCS: 71046; 73562; 99283

== ENCOUNTER 2024-11-27 12:26 | Emergency (ER) | payer OTHER, SELFPAY ==
[2024-11-27 12:26] VITALS: BP 147/98; PULSE 83; RESP 17; TEMP 37; O2SAT 99; BMI 23.6
--- NOTE | 2024-11-27 12:32 | ED_ITS ---
<Statement entered by Brandon Anderson MD - 11/27/24 15:32> I was consulted by the SUSAN, and we discussed the complexity of the problems being addressed. I approved the treatment and management plan for this patient's care in the emergency department, thus performing a substantive portion of the medical decision making. Brandon Anderson MD Discharge Plan Disposition Patient Disposition: Home, Self-Care Condition: Good Prescriptions Prescriptions: No Action ondansetron 4 mg tablet,disintegrating 4 mg PO Q8H PRN (Reason: nausea and vomiting) Qty: 10 0RF methocarbamol 750 mg tablet 750 mg PO Q6H PRN (Reason: muscle spasm) Qty: 20 0RF lidocaine 5 % adhesive patch,medicated 1 patch topical DAILY Qty: 30 0RF Rx Instructions: leave on most painful area for up to 12 hrs Referrals Follow up/Referrals: Marvin Allen DO [Primary Care Provider] - See instructions Linda Fleming APRN [Nurse Practitioner] - See instructions Reji Suarez MD [Staff Physician] - See instructions Activity Restrictions/Add. Instructions Additional Instructions/Restrictions: Discussed I am referring you both to ENT and cardiology. Please call and make your appointment with them. If you have continued new or worsening signs or symptoms follow-up with your PCP or return to the ER as needed. Clinical Impressions Clinical Impression: Syncope and collapse, Left-sided tinnitus Stand Alone Forms Stand Alone Forms: Work/School Release Instructions Patient Instructions: DI for Syncope in Adults (Fainting), DI for Tinnitus Print Language Print Language: [place] Discharge ED Provider: Brandon Anderson General Adult HPI <MANOJ Peguero - Last Filed: 11/27/24 14:58> General Chief complaint: Dizziness Stated complaint: dizzy, light headed, ringing in ear Time Seen by Provider: 11/27/24 12:32 History of Present Illness HPI narrative: Patient presents for evaluation of ringing in his ears lightheadedness and syncope and collapse. Patient states that on Sunday he had been playing video games lying down he got up to go take a shower he noticed that he had left side ringing in his ear and the next thing that he knows he woke up on the floor. He suffered no ill effects and has not had any problems since until today. 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 Patient states that he sat down and it took almost an hour for him to come back to normal. He denies any headache fever chills hemoptysis hematochezia melena nausea vomiting diarrhea loss of hearing. He is on no chronic home medications has no chronic medical conditions. Related Data Previous Rx's ?Medication ?Instructions ?Recorded ondansetron 4 mg disintegrating 4 mg PO Q8H PRN nausea and 08/05/24 tablet vomiting #10 tabs lidocaine 5 % topical patch 1 patch topical DAILY #30 ea 08/25/24 methocarbamol 750 mg tablet 750 mg PO Q6H PRN muscle spasm #20 08/25/24 tabs Allergies Allergy/AdvReac Type Severity Reaction Status Date / Time No Known Allergies Allergy Verified 03/02/19 02:14 [facility] <MANOJ Peguero - Last Filed: 11/27/24 14:58> [facility] Disclaimer: The information contained in this section may have been updated after the patient was seen, as this information can be updated by other users. Medical History (Updated 11/27/24 @ 14:14 by MANOJ Peguero) Migraine Surgical History (Updated 08/05/24 @ 12:37 by Conchita Beasley RN) History of tonsillectomy and adenoidectomy Social History Smoking Status: Current every day smoker tobacco type: cigarettes packs per day: 1 second hand exposure: Yes alcohol intake: never substance use type: marijuana current occupational status: other Travel in the last 8 weeks: None household members: family housing: house Have you lived/traveled outside US in past 30 days?: No Contact w/someone who lives/traveled outside US past 30 days?: No Exposure to someone with infectious disease in past 14 days?: No Do you have a fever (greater than 100.4 F or 38 C)?: No Have you tested positive for COVID-19: No Exposed to someone with COVID-19 in past 14 days?: No Do you have a sore throat?: No Do you have a cough?: No Do you have any weakness?: No Do you have any diarrhea?: No Are you experiencing any unusual bleeding?: No Do you have any muscle aches/pain?: No Do you have any abdominal pain?: No Are you experiencing loss of taste or smell?: No Other Medical History Have you received the Flu Vaccine for this season: No Have you received the Pneumonia Vaccine: No <MANOJ Peguero - Last Filed: 11/27/24 14:58> ROS Obtained: Yes Systems reviewed as appropriate & no additional complaints except as documented Physical Exam <MANOJ Peguero - Last Filed: 11/27/24 14:58> General General appearance: alert and in no apparent distress Respiratory Respiratory exam: Present normal lung sounds bilaterally Cardiovascular Cardiovascular exam: Present regular rate Neurological Exam Neurological exam: Present alert and oriented X3 Medical Decision Making <MANOJ Peguero - Last Filed: 11/27/24 14:58> Medical Records Medical records reviewed: Yes I reviewed the patient's medical records. Screening: Per USPSTF and CDC recommendations, given the prevalence of disease in our region, it is our hospital?s policy to screen for HIV and viral Hepatitis for all patients aged 18 and over and those with ongoing risk factors. Daljit Inquiry Pt receiving controlled substance: No Vital Signs: 11/27/24 12:26 11/27/24 12:45 11/27/24 12:55 Temperature 98.6 F Temperature Source Oral Pulse Rate 81 74 Pulse Rate [Right] 83 Respiratory Rate 17 Blood Pressure 121/79 Blood Pressure [Right Arm] 147/98 H Blood Pressure Mean Blood Pressure Mean [Right Arm] 114 Blood Pressure Source Blood Pressure Source [Right Arm] Automatic Cuff 02 Sat by Pulse Oximetry 99 100 98 Oxygen Delivery Method Room Air Room Air 11/27/24 14:00 11/27/24 14:36 Temperature 98.2 F Temperature Source Oral Pulse Rate 74 85 Pulse Rate [Right] Respiratory Rate 18 Blood Pressure 118/69 126/77 Blood Pressure [Right Arm] Blood Pressure Mean 83 Blood Pressure Mean [Right Arm] Blood Pressure Source Automatic Cuff Blood Pressure Source [Right Arm] 02 Sat by Pulse Oximetry 98 Oxygen Delivery Method Room Air Room Air Lab Data Lab results reviewed: Yes I reviewed the patient's lab results. Lab Results 11/27/24 13:00: WBC 4.8, RBC 5.41, Hgb 16.4, Hct 46.4, MCV 85.8, MCH 30.3, MCHC 35.3, RDW 11.9, Plt Count 193, MPV 9.4, Neut % (Auto) 57.3, Lymph % (Auto) 36.3, [place] % (Auto) 5.0, Eos % (Auto) 0.8, Baso % (Auto) 0.4, Neut # (Auto) 2.7, Lymph # (Auto) 1.7, [place] # (Auto) 0.2, Eos # (Auto) 0.0, Baso # (Auto) 0.0, ESR 1, Sodium 140, Potassium 3.9, Chloride 107, Carbon Dioxide 25, Anion Gap 11.9, BUN 10, Creatinine 0.80, Estimated Creat Clear 142, Estimated GFR 116, Est GFR ( Amer) 140, Glucose 92, Calcium 10.0, Magnesium 2.2, Total Bilirubin 0.6, AST 39, ALT 25, Alkaline Phosphatase 46, Troponin I < 0.01, C-Reactive Protein < 0.3, Total Protein 7.8, Albumin 5.6 H, Globulin 2.2, Albumin/Globulin Ratio 2.5 H, TSH 1.44, Free T4 Index 2.2 L, Thyroxine (T4) 7.4, T3 Uptake 30, SARS-CoV-2 (PCR) Not detected, Influenza A Untype (PCR) Not detected, Influenza Type B (PCR) Not detected 11/27/24 13:00 11/27/24 13:00 Orders (Tests/Meds): ED MEDICATIONS Discontinued Medications Generic Name Dose Route Start Last Admin Trade Name Freq PRN Reason Stop Dose Admin Iopamidol 80 ml 11/27/24 13:13 11/27/24 13:14 Iopamidol-370 (76%);100ml Bottle IV 11/27/24 13:14 80 ml ONCE ONE Administration Sodium Chloride 50 ml 11/27/24 13:13 11/27/24 13:13 0.9 % Sodium Chloride 50 Ml Vial IV 11/27/24 13:14 50 ml ONCE ONE Administration Sodium Chloride 10 ml 11/27/24 13:13 11/27/24 13:13 Sodium Chloride 0.9% 10ml Syr (Rad Only) IV 11/27/24 13:14 10 ml ONCE ONE Administration ORDERS Category Date Time Status CT angio head Stat Cat Scan 11/27/24 12:[address] angio neck Stat Cat Scan 11/27/24 12:[address] head/brain wo con Stat Cat Scan 11/27/24 12:48 Completed POCUS Point of Care (ER Only) Stat Exams 11/27/24 13:05 Completed CBC w/Auto Diff [Complete Blood Count Auto Diff] Stat Lab 11/27/24 13:00 Completed CMP [Comprehensive Metabolic Panel] Stat Lab 11/27/24 13:00 Completed CRP [C-Reactive Protein] Stat Lab 11/27/24 13:00 Completed ESR [Erythrocyte Sedimentation Rate] Stat Lab 11/27/24 13:00 Completed Magnesium Stat Lab 11/27/24 13:00 Completed Rapid PCR Covid and Flu A/B Stat Lab 11/27/24 13:00 Completed Thyroid Panel Stat Lab 11/27/24 13:00 Completed Trop I [Troponin I] Stat Lab 11/27/24 13:00 Completed Medical Decision Narrative: In summary patient is a 9-year-old male who presents to the emergency department for evaluation of left-sided tinnitus and syncope and collapse. Patient is hemodynamically stable upon arrival, afebrile. Physical exam is remarkable for normal bilateral external auditory canals, normal tympanic membranes, he has no bruits in the head or neck, [place] Coma Score 15 cranial nerves II through XII are intact grossly to exam pupils equal round reactive to light patient has no focal neurologic deficits has normal gait and station. Differential diagnosis includes vertigo versus vasovagal syncope versus intracranial vascular lesion versus acoustic neuroma versus arrhythmia etc. Initial workup will be conducted with CT of the head without contrast CTA of the head and neck hematologic labs POCUS. Initial interventions were considered however patient is asymptomatic currently thus deferred for now. Initial workup reviewed by me and his hematologic labs are nonactionable and my informed interpretation of his CT imaging shows no acute intracranial process or vascular lesion and POCUS did not reveal any cardiac abnormalities. Upon repeat evaluation patient is ambulating without difficulty or symptoms. Given this while there remains diagnostic uncertainty as to the exact cause the symptoms are concerning that we will refer the patient both to ear nose and throat and cardiology for further workup and restratification. Patient given strict return precautions and patient verbalized understanding and agreement. Procedure: Procedure performed was [id number] ultrasound by Brandon Anderson. Indication: Syncope Identified cardiac views: Cardiac parasternal long axis, apical four-chamber Findings: Cardiac activity present, gross wall motion normal, no thickened septum, grossly normal myocardium, no pericardial effusion present Impression: -From above Images were not saved to permanent archive The study was technically adequate CPT: 66795 This study was performed by me, and I personally interpreted all images/videos. Based on my clinical judgement, these images were adequate and did not necessitate further imaging. <Brandon Anderson MD - Last Filed: 11/27/24 13:43> Vital Signs: 11/27/24 12:26 11/27/24 12:45 11/27/24 12:55 Temperature 98.6 F Temperature Source Oral Pulse Rate 81 74 Pulse Rate [Right] 83 Respiratory Rate 17 Blood Pressure 121/79 Blood Pressure [Right Arm] 147/98 H Blood Pressure Mean Blood Pressure Mean [Right Arm] 114 Blood Pressure Source Blood Pressure Source [Right Arm] Automatic Cuff 02 Sat by Pulse Oximetry 99 100 98 Oxygen Delivery Method Room Air Room Air 11/27/24 14:00 11/27/24 14:36 Temperature 98.2 F Temperature Source Oral Pulse Rate 74 85 Pulse Rate [Right] Respiratory Rate 18 Blood Pressure 118/69 126/77 Blood Pressure [Right Arm] Blood Pressure Mean 83 Blood Pressure Mean [Right Arm] Blood Pressure Source Automatic Cuff Blood Pressure Source [Right Arm] 02 Sat by Pulse Oximetry 98 Oxygen Delivery Method Room Air Room Air Lab Data Lab Results 11/27/24 13:00: WBC 4.8, RBC 5.41, Hgb 16.4, Hct 46.4, MCV 85.8, MCH 30.3, MCHC 35.3, RDW 11.9, Plt Count 193, MPV 9.4, Neut % (Auto) 57.3, Lymph % (Auto) 36.3, [place] % (Auto) 5.0, Eos % (Auto) 0.8, Baso % (Auto) 0.4, Neut # (Auto) 2.7, Lymph # (Auto) 1.7, [place] # (Auto) 0.2, Eos # (Auto) 0.0, Baso # (Auto) 0.0, ESR 1, Sodium 140, Potassium 3.9, Chloride 107, Carbon Dioxide 25, Anion Gap 11.9, BUN 10, Creatinine 0.80, Estimated Creat Clear 142, Estimated GFR 116, Est GFR ( Amer) 140, Glucose 92, Calcium 10.0, Magnesium 2.2, Total Bilirubin 0.6, AST 39, ALT 25, Alkaline Phosphatase 46, Troponin I < 0.01, C-Reactive Protein < 0.3, Total Protein 7.8, Albumin 5.6 H, Globulin 2.2, Albumin/Globulin Ratio 2.5 H, TSH 1.44, Free T4 Index 2.2 L, Thyroxine (T4) 7.4, T3 Uptake 30, SARS-CoV-2 (PCR) Not detected, Influenza A Untype (PCR) Not detected, Influenza Type B (PCR) Not detected Orders (Tests/Meds): ED MEDICATIONS Discontinued Medications Generic Name Dose Route Start Last Admin Trade Name Freq PRN Reason Stop Dose Admin Iopamidol 80 ml 11/27/24 13:13 11/27/24 13:14 Iopamidol-370 (76%);100ml Bottle IV 11/27/24 13:14 80 ml ONCE ONE Administration Sodium Chloride 50 ml 11/27/24 13:13 11/27/24 13:13 0.9 % Sodium Chloride 50 Ml Vial IV 11/27/24 13:14 50 ml ONCE ONE Administration Sodium Chloride 10 ml 11/27/24 13:13 11/27/24 13:13 Sodium Chloride 0.9% 10ml Syr (Rad Only) IV 11/27/24 13:14 10 ml ONCE ONE Administration ORDERS Category Date Time Status CT angio head Stat Cat Scan 11/27/24 12:[address] angio neck Stat Cat Scan 11/27/24 12:[address] head/brain wo con Stat Cat Scan 11/27/24 12:48 Completed POCUS Point of Care (ER Only) Stat Exams 11/27/24 13:05 Completed CBC w/Auto Diff [Complete Blood Count Auto Diff] Stat Lab 11/27/24 13:00 Completed CMP [Comprehensive Metabolic Panel] Stat Lab 11/27/24 13:00 Completed CRP [C-Reactive Protein] Stat Lab 11/27/24 13:00 Completed ESR [Erythrocyte Sedimentation Rate] Stat Lab 11/27/24 13:00 Completed Magnesium Stat Lab 11/27/24 13:00 Completed Rapid PCR Covid and Flu A/B Stat Lab 11/27/24 13:00 Completed Thyroid Panel Stat Lab 11/27/24 13:00 Completed Trop I [Troponin I] Stat Lab 11/27/24 13:00 Completed ECG Data Tracing #1: Independently interpreted by me rate is 59, rhythm is regular, axis is normal, no ST elevation in anatomical contiguous leads, no dagger Q waves in the lateral leads no prolonged QT, QTc 391, no high degree AV block. Medical Decision Narrative: In summary patient is a [age, sex] who presents to the emergency department for evaluation of [complaint]. Patient is [hemodynamically stable/unstable] upon arrival, [febrile/afebrile]. [Unremarkable physical exam, nonfocal exam versus focal remarkable exam]. Differential diagnosis includes [DDx]. Initial workup will be conducted with [hematologic labs, imaging, respiratory swab, describe workup]. Initial interventions include [crystalloid bolus, medications, p.o. challenge, etc.] initial workup reviewed by me [hematologic labs are remarkable for... Imaging remarkable for... Urinalysis remarkable for]. Upon repeat evaluation [patient had acceptable resolution of symptoms, had persistent pain for which additional interventions were conducted (describe interventions), tolerated p.o., was ambulatory, etc.]. Given this [patient is appropriate for discharge at this time and will be discharged with a prescription for... The case was discussed with hospital medicine regarding management and they will admit the patient their service for continued evaluation at this time... Etc.] Places where you can increase complexity: I informally interpreted the patient's chest x-ray or CT read and is remarkable for... Documenting what the residential monitor shows with rate and rhythm Consideration of test but deferring. Ex: I considered chest x-ray on this patient however given that they have no oxygen requirement and are clear to auscultation all lung cash will be deferred. Social determinants of health: Given that patient is undomiciled increases complexity. Given that patient has polysubstance abuse compounds all aspects of care Procedure: Procedure performed was [id number] ultrasound by Brandon Anderson. Indication: Syncope Identified cardiac views: Cardiac parasternal long axis, apical four-chamber Findings: Cardiac activity present, gross wall motion normal, no thickened septum, grossly normal myocardium, no pericardial effusion present Impression: -From above Images were not saved to permanent archive The study was technically adequate CPT: 41702 This study was performed by me, and I personally interpreted all images/videos. Based on my clinical judgement, these images were adequate and did not necessitate further imaging. Critical Care <MANOJ Peguero - Last Filed: 11/27/24 14:58> Critical Care Time Critical Care Time: Yes Attestation: On 11/27/24, the high probability of a clinically significant, sudden or life threatening deterioration of the following system(s) required my full and direct attention, intervention and personal management. The time I documented below is in addition to time spent performing reported procedures but includes the following listed in this critical care notation. Total Time Total Critical Care Time: 35
[2024-11-27 12:45] VITALS: PULSE 81; O2SAT 100
--- NOTE | 2024-11-27 12:48 | CT_ITS ---
FINAL REPORT TECHNIQUE: Noncontrast exam This study was performed with techniques to keep radiation doses as low as reasonably achievable, (ALARA). Individualized dose reduction techniques using automated exposure control or adjustment of mA and/or kV according to the patient's size were employed. CLINICAL HISTORY: Left-sided tinnitus, syncope and collapse COMPARISON: None FINDINGS: CT HEAD: No abnormal density is seen. Ventricles are normal. There is no hemorrhage. No mass effect is seen. 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 The mastoid air cells and middle ear cavities appear unremarkable. Bone windows show no evidence of fracture. IMPRESSION: No acute findings Reviewed, Interpreted and Dictated by Yue Moore MD Transcribed by Steph Gotti Authenticated and [facility]
--- NOTE | 2024-11-27 12:48 | CT_ITS ---
FINAL REPORT CLINICAL HISTORY: Left-sided tinnitus, syncope and collapse COMPARISON: None FINDINGS: CT NECK ANGIO, WITHOUT AND WITH CONTRAST TECHNIQUE: Thin section axial CT with contrast with multiplanar 3D MIP reconstruction. This study was performed with techniques to keep radiation doses as low as reasonably achievable, (ALARA). Individualized dose reduction techniques using automated exposure control or adjustment of mA and/or kV according to the patient's size were employed. NASCET criteria and technique was utilized during interpretation. FINDINGS: Aortic arch: Arch shows no significant narrowing. Great vessel origins are widely patent. Right carotid: No significant stenosis is seen of the cervical common or internal carotid artery. Left carotid: No significant stenosis is seen of the cervical common or internal carotid artery. Vertebrals: The right vertebral artery is dominant. No significant stenosis is present. IMPRESSION: No significant stenosis of the cervical carotid arteries This study was performed using automated techniques to achieve radiation exposure as low as reasonably Reviewed, Interpreted and Dictated by Yue Moore MD Transcribed by Steph Gotti Authenticated and . [facility]
--- NOTE | 2024-11-27 12:48 | CT_ITS ---
FINAL REPORT CLINICAL HISTORY: Left-sided tinnitus, syncope and collapse COMPARISON: None FINDINGS: CTA HEAD TECHNIQUE: Thin section axial CT with contrast with 3D MIP reconstruction This study was performed with techniques to keep radiation doses as low as reasonably achievable, (ALARA). Individualized dose reduction techniques using automated exposure control or adjustment of mA and/or kV according to the patient's size were employed. FINDINGS: No aneurysm is seen. Major intracranial vessels are patent without significant stenosis. . 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 No vascular malformation is evident. IMPRESSION: Unremarkable This study was performed using automated techniques to achieve radiation exposure as low as reasonably achievable Reviewed, Interpreted and Dictated by Yue Moore MD Transcribed by Steph Gotti Authenticated and [facility]
[2024-11-27 12:55] VITALS: BP 121/79; PULSE 74; O2SAT 98
--- NOTE | 2024-11-27 13:04 | PC.NURSE ---
PT WENT TO RAD
[2024-11-27 13:13] LABS: Basophils % 0.4 % (0.1-2.0); Eosinophils % 0.8 % (0.1-12.0); Hematocrit 46.4 % (42.0-52.0); Hemoglobin 16.4 g/dL (14.1-18.0); Lymphocytes # 1.7 K/mm3 (0.7-4.5); Lymphocytes % 36.3 % (10-50); Mean Corpuscular HGB Conc 35.3 g/dL (31.8-35.4); Mean Corpuscular Hemoglobin 30.3 pg (27.0-31.2); Mean Corpuscular Volume 85.8 fl (80-94); Mean Platelet Volume 9.4 fl (7.4-10.4); Monocytes # 0.2 K/mm3 (0.1-1.0); Neutrophils # 2.7 K/mm3 (1.8-7.8); Neutrophils % 57.3 % (37.0-80.0); Platelet Count 193 K/mm3 (142-424); Red Blood Count 5.41 M/mm3 (4.60-6.20); Red Cell Distribution Width 11.9 % (11.5-17.5); White Blood Count 4.8 K/mm3 (4.8-10.8)
[2024-11-27] MEDS: SODIUM CHLORIDE 0.9% 10ML SYR (RAD ONLY) 10 ML IV (13:13)
[2024-11-27] MEDS: 0.9 % SODIUM CHLORIDE 50 ML VIAL IV (13:13)
[2024-11-27] MEDS: IOPAMIDOL-370 (76%);100ML BOTTLE 80 ML IV (13:14)
--- NOTE | 2024-11-27 13:14 | PC.NURSE ---
PT RETURNED FROM CT
[2024-11-27 13:19] LABS: Coronavirus 19, PCR Not Detected (NotDetected); Influenza A, PCR Not Detected (NotDetected); Influenza B, PCR Not Detected (NotDetected)
--- NOTE | 2024-11-27 13:19 | ECG_ITS ---
APPROVED REPORT Exam: Resting ECG HR:59 bpm ECG Measurements Heart Rate 59 AXES SD 155 P 55 QRSd 100 QRS 87 QT 392 T 77 QTc 391 Conclusion SINUS BRADYCARDIA BORDERLINE ECG UNCONFIRMED REPORT Electronically signed by : ROYAL DONATO, 11/28/2024 02:23:05
[2024-11-27 13:26] LABS: Alanine Aminotransferase 25 U/L (12-78); Albumin Level 5.6 g/dl (3.5-5.0); Albumin/Globulin Ratio 2.5 (1.1-1.8); Alkaline Phosphatase 46 U/L (38-126); Anion Gap 11.9 mEq/L (5-15); Aspartate Amino Transferase 39 U/L (17-59); Bilirubin,Total 0.6 mg/dl (0.2-1.3); Blood Urea Nitrogen 10 mg/dl (9-20); Carbon Dioxide 25 mmol/L (22.0-30.0); Chloride 107 mmol/L (98-107); Creatinine Clearance Estimated 142 mL/min (50-200); Estimated Glomerular Filt Rate 116 ml/min (>60); GFR (African American) 140 ML/MIN (>60); Globulin 2.2 g/dL (1.3-3.2); Glucose 92 mg/dl (74-100); Magnesium 2.2 mg/dl (1.6-2.3); Potassium 3.9 mmoL/L (3.5-5.1); Sodium 140 mmol/L (136-145); Total Protein,Serum 7.8 g/dl (6.3-8.2)
[2024-11-27 13:37] LABS: Erythrocyte Sedimentation Rate 1 mm/hr (0-15)
[2024-11-27 13:39] LABS: C-Reactive Protein < 0.3 mg/L (0-4)
[2024-11-27 13:41] LABS: Troponin I < 0.01 ng/ml (0.00-0.034)
[2024-11-27 14:00] VITALS: BP 118/69; PULSE 74; O2SAT 98
[2024-11-27 14:08] LABS: Triiodothryronine (T3) Uptake 30 % (23.5-40.5)
[2024-11-27 14:09] LABS: Free Thyroxine Index 2.2 ug/dL (5.93-13.13); T4 (Thyroxine) 7.4 ug/dl (5.53-11.0)
[2024-11-27 14:22] LABS: Thyroid Stimulating Hormone 1.44 uIU/mL (0.465-4.68)
--- NOTE | 2024-11-27 14:34 | PC.NURSE ---
WALKED PT AROUND NURSES STATION, STOPPED AT RESTROOM ALONG THE WAY.
--- NOTE | 2024-11-27 14:34 | PC.NURSE ---
Claudy ARANDA at bedside
[2024-11-27 14:36] VITALS: BP 126/77; PULSE 85; RESP 18; TEMP 36.8; O2SAT 98
== END 2024-11-27 14:41 | disposition home or self-care (01) ==
PROVIDERS: Physician Assistant; Emergency Provider Emergency Medicine; PCP Internal Medicine
DX: R55 Syncope and collapse (principal); H93.12 Tinnitus, left ear; R42 Dizziness and giddiness; H93.19 Tinnitus, unspecified ear; F17.210 Nicotine dependence, cigarettes, uncomplicated
CPT/HCPCS: 70450; 70496; 70498; 80053; 83735; 84436; 84443; 84479; 84484; 85025; 85651; 86140; 87636; 93005; 99291; Q9967